=== PATIENT | female | born 1990 | race Caucasian/White ===

== ENCOUNTER → 2017-03-22 | Outpatient (CLI) | payer SELFPAY ==
--- NOTE | 2017-03-22 17:16 | RADIOLOGY REPORT (SQ) ---
EXAM DESCRIPTION: U/S OB 14+ TRNABD 1GES W/O DOP COMPLETED DATE/TIME: 03/22/2017 4:55 pm REASON FOR STUDY: ENCOUNTER FOR SUPERVISION OF OTHER NORMAL 2ND TRIMESTER (Z34.82) Z34.82 ENCOUNTER FOR SUPRVSN OF NORMAL , SECOND TRI COMPARISON: None. TECHNIQUE: Static and Dynamic grayscale imaging performed of gravid uterus using transabdominal appr oach. Additional selected color Doppler and spectral images recorded. All stored on PACS. LIMITATIONS: None. FINDINGS: EGA: 25 weeks 6 days SHARRI: 06/29/2017 EFW: 802+/- 119 grams PERCENTILE: 48 SPRING: 12.2 cm PLACENTA: Anterior grade 1 PRESENTATION: Breech ANATOMY: HEART RATE: 155 beats per minute. FOUR CHAMBER HEART: Visualized. THREE VESSEL CORD: Yes. CORD INSERTION: Visualized. KIDNEYS AND BLADDER: Visualized. Appear normal except for questionably dilated left renal pelvis at 4 .5 mm. STOMACH: Visualized. Appears normal. SPINE: Normal as visualized. BRAIN AND LATERAL VENTRICLES: Visualized. Appear normal. OTHER: No other significant finding. MATERNAL ADNEXA: Maternal ovaries not visualized. CERVICAL LENGTH: Not applicable. Greater than 20 weeks. Need transvaginal study if indicated. Close d. OTHER: No other significant finding. IMPRESSION: 1. There is a live intrauterine gestation of 25 weeks 6 days estimated date of delivery of 06/29/2017. 2. The left renal pelvis is questionably dilated. Trimester of : Second trimester - 13 weeks 1 day to 27 weeks 6 days. TECHNICAL DOCUMENTATION: JOB ID: [id number] [employer]- All Rights Reserved
== END ==
LOC: RAD 14:19
PROVIDERS: ATTEND Nurse Practitioner Women's Health
DX: Z34.82 Encounter for supervision of other normal pregnancy, second trimester (principal)
CPT/HCPCS: 76805

== ENCOUNTER 2017-06-28 05:29 | Inpatient (IN) | payer MEDICAID ==
[2017-06-27 11:35] LABS: AMORPHOUS SEDIMENT,URINE TRACE /HPF; APPEARANCE,URINE CLOUDY; BILIRUBIN,URINE NEGATIVE (NEGATIVE); COLOR,URINE YELLOW; GLUCOSE, URINE NEGATIVE (NEGATIVE); KETONES,URINE NEGATIVE (NEGATIVE); LEUKOCYTE ESTERASE,URINE MODERATE (NEGATIVE); NITRITE,URINE NEGATIVE (NEGATIVE); PROTEIN,URINE NEGATIVE (NEGATIVE); UROBILINOGEN,URINE NEGATIVE mg/dL (<2.0)
[2017-06-27 11:37] LABS: ABSOLUTE EOSINOPHILS # (AUTO) 0.1 10^3/uL (0.0-0.6); ABSOLUTE LYMPHOCYTES (AUTO) 0.8 10^3/uL (0.5-4.7); ABSOLUTE MONOCYTES (AUTO) 0.4 10^3/uL (0.1-1.4); ABSOLUTE NEUT (AUTO) 4.1 10^3/uL (1.7-8.2); BASOPHILS % (AUTO) 0.4 % (0-2); HEMATOCRIT 27.3 % (36.0-47.0); HEMOGLOBIN 9.1 g/dL (12.0-15.5); LYMPHOCYTES % (AUTO) 14.7 % (13-45); MEAN CORPUSCULAR HEMOGLOBIN 26.4 pg (27.0-33.4); MEAN CORPUSCULAR HGB CONC 33.2 g/dL (32.0-36.0); MEAN CORPUSCULAR VOLUME 79 fl (80-97); MONOCYTES % (AUTO) 7.8 % (3-13); PLATELET COUNT 159 10^3/uL (150-450); RED BLOOD COUNT 3.43 10^6/uL (3.72-5.28); RED CELL DISTRIBUTION WIDTH 13.8 % (11.5-14.0); SEGMENTED NEUTROPHILS % (AUTO) 75.1 % (42-78); TOTAL CELLS COUNTED % (AUTO) 100 %; WHITE BLOOD COUNT 5.5 10^3/uL (4.0-10.5)
[2017-06-27 12:08] LABS: URINE AMPHETAMINES SCREEN NEGATIVE; URINE BARBITURATES SCREEN NEGATIVE; URINE BENZODIAZEPINES SCREEN NEGATIVE; URINE COCAINE SCREEN NEGATIVE; URINE MARIJUANA (THC) SCREEN NEGATIVE; URINE METHADONE SCREEN NEGATIVE; URINE PHENCYCLIDINE SCREEN NEGATIVE
[~2017-06-28 05:29] MED LIST: CEFAZOLIN 2 GM/D5W RTU 2 GM/50 ML RTUPB IV PRN; LACTATED RINGERS 1000 ML IV PRN; LIDOCAINE 0.5% INJ-PF (5 MG/ML) 50 ML SDV SUBCUT PRN; RINGERS SOLUTION,LACTATED 1,000 ML IV PRN
[2017-06-28] MEDS ORDERED: OXYTOCIN/NORMAL SALINE 20 UNIT/1,000 ML RTUINJ ONE ×2 (07:33→09:23)
[2017-06-28] MEDS ORDERED: EPHEDRINE SULFATE INJ 50 MG/1 ML AMPULE ONE (07:33)
[2017-06-28] MEDS ORDERED: MIDAZOLAM 2 MG/2 ML INJ ONE (07:33)
[2017-06-28] MEDS ORDERED: FENTANYL CITRATE INJ/PF 100 MCG/2 ML AMPUL ONE (07:34)
[2017-06-28] MEDS ORDERED: PROPOFOL INJ 200 MG/20 ML VIAL IV ONE (07:34)
[2017-06-28] MEDS ORDERED: OXYCODONE-ACETAMINOPHEN 5-325 MG TABLET PO PRN ×3 (08:13→09:04)
[2017-06-28] MEDS ORDERED: MORPHINE SULFATE 10 MG/ML INJ IV PRN (08:13)
[2017-06-28] MEDS ORDERED: MEPERIDINE HCL/PF INJ 25 MG/1 ML DISP.SYRIN IV PRN (08:13)
[2017-06-28] MEDS ORDERED: DIPHENHYDRAMINE HCL 50 MG/ML VIAL IV PRN (08:13)
[2017-06-28] MEDS ORDERED: FENTANYL CITRATE INJ/PF 100 MCG/2 ML AMPUL IV PRN ×3 (08:13)
[2017-06-28] MEDS ORDERED: PROMETHAZINE HCL INJ 25 MG/1 ML VIAL IV PRN ×3 (08:13→09:04)
[2017-06-28] MEDS ORDERED: OXYTOCIN/NORMAL SALINE 20 UNIT/1,000 ML RTUINJ IV PRN (09:04)
[2017-06-28] MEDS ORDERED: ACETAMINOPHEN 325 MG TABLET PO PRN (09:04)
[2017-06-28] MEDS ORDERED: MEASLES,MUMPS&RUBELLA VACC/PF 0.5 ML VIAL SUBCUT PRN (09:04)
[2017-06-28] MEDS ORDERED: RINGERS SOLUTION,LACTATED 1,000 ML IV PRN (09:04)
[2017-06-28] MEDS ORDERED: DIPH/PERTUSS(ACELL)/TETANUS VAC/PF 0.5 ML SYR (>=10YO) IM PRN (09:04)
[2017-06-28] MEDS ORDERED: HYDROMORPHONE HCL INJ/PF 2 MG/ML AMPULE IV PRN (09:04)
[2017-06-28] MEDS ORDERED: ACETAMINOPHEN 100 ML IV PRN (09:04)
--- NOTE | 2017-06-28 09:04 | Operative Report ---
Operative Report DATE OF SURGERY: 06/28/17 PREOPERATIVE DIAGNOSIS: Repeat to prevent risk of uterine rupture POSTOPERATIVE DIAGNOSIS: Same OPERATION: Repeat via low transverse uterine incision SURGEON: MCKINLEY CRISTOBAL ANESTHESIA: Spinal TISSUE REMOVED OR ALTERED: Placenta COMPLICATIONS: None ESTIMATED BLOOD LOSS: 250 cc INTRAOPERATIVE FINDINGS: Viable male Apgars 8 and 9 weight 7 lbs. 11 oz. normal uterus tubes and ovaries PROCEDURE: Patient was taken to the OR and placed in supine position after her spinal anesthesia. She is prepared and draped in sterile fashion. Guzman was placed for drainage of the bladder. Low transverse incision was made and carried down the level of the fascia. The fascial incision was made with knife and extended bilaterally with curved Buenrostro scissors. The fascia was off the rectus muscles using sharp and blunt dissection. The rectus muscles are in the midline. The peritoneum was entered without incident. Bladder blade was placed in uterine segment was identified. A low transverse incision was made creating a bladder flap. Bladder blade was placed low transverse uterine incision was made with the c safe knife and extended with fingertips. The baby was delivered with some fundal pressure. Mouth and nose were suctioned free. The cord is doubly clamped and cut. Baby is passed off to the tube machine operator helper in attendance. The placenta was manually extracted with trailing membranes. The uterus was externalized wrapped in a moist lap sponge. Uterine contents wiped free. Uterus was closed with a running locking layer of 0 chromic suture using the second layer to imbricate the first completing a double layer closure of the uterus. The serosa was closed with a running 2-0 chromic stitch. The pelvis was irrigated and suctioned free of fluid the uterus was replaced in the abdomen. The abdominal wall peritoneum was closed with running 2-0 chromic stitch. Fascia was closed with a running 0 Vicryl in 2 segments. Katie's layer was brought together with 0 plain gut stitch and the skin was closed with running subcuticular 4-0 undyed Vicryl stitch. The wound was dressed mother and baby did well.
[2017-06-28] MEDS ORDERED: ACETAMINOPHEN 100 ML IV ONE (09:20)
[2017-06-28] MEDS: KETOROLAC TROMETHAMINE INJ/PF 30 MG/1 ML SDV IV SCH ×2 (11:55→18:14)
[2017-06-28] MEDS: PRENATAL VITAMIN W DHA CAPSULE PO SCH (11:57)
[2017-06-28] MEDS: DOCUSATE SODIUM 100 MG CAPSULE PO SCH ×2 (11:58→18:15)
[2017-06-28] MEDS ORDERED: ONDANSETRON HCL INJ/PF 4 MG/2 ML SDV ONE (12:07)
[2017-06-28] MEDS: OXYCODONE-ACETAMINOPHEN 5-325 MG TABLET PO PRN ×2 (18:14→22:15)
[2017-06-29] MEDS: KETOROLAC TROMETHAMINE INJ/PF 30 MG/1 ML SDV IV SCH (01:37)
[2017-06-29 06:36] LABS: HEMATOCRIT 22.1 % (36.0-47.0); MEAN CORPUSCULAR HEMOGLOBIN 26.5 pg (27.0-33.4); MEAN CORPUSCULAR HGB CONC 33.4 g/dL (32.0-36.0); MEAN CORPUSCULAR VOLUME 80 fl (80-97); PLATELET COUNT 150 10^3/uL (150-450); RED BLOOD COUNT 2.77 10^6/uL (3.72-5.28); RED CELL DISTRIBUTION WIDTH 13.9 % (11.5-14.0); WHITE BLOOD COUNT 7.2 10^3/uL (4.0-10.5)
[2017-06-29 06:42] LABS: HEMOGLOBIN 7.4 g/dL (12.0-15.5)
[2017-06-29] MEDS: OXYCODONE-ACETAMINOPHEN 5-325 MG TABLET PO PRN ×3 (07:17→19:47)
--- NOTE | 2017-06-29 09:35 | PDOC PROGRESS REPORT ---
Subjective-OB Subjective: Post Delivery Day: 1 26 year old. Denies any needs at this time, voiding without difficulty, state lochia is stable, pain well controlled, bonding with baby well. Physical Exam (OB) Vital Signs: Temp Pulse Resp BP Pulse Ox 97.9 F 74 15 108/65 98 06/29/17 08:09 06/29/17 08:09 06/29/17 08:09 06/29/17 08:09 06/29/17 08:09 Intake & Output 06/28/17 06/29/17 06/30/17 06:59 06:59 06:59 Intake Total 2111 Output Total 1625 Balance 486 Weight 68.039 kg - PIH/Pre-Eclampsia DTR's: 1 + Clonus: Negative Headache: Absent Epigastric Pain: No Visual Changes: No - Dressing Removed: No - op site Incision: Dressing Closure Type: Op Site - Lochia Lochia Amount: Small 10-25 ml Lochia Color: Rubra/Red - Abdomen Description: Soft Hernia Present: No Fundal Description: Firm, Midline Fundal Height: u/u - u/2 Objective-Diagnostic Laboratory: 06/29/17 06:13 06/29/17 06:13 WBC 7.2 RBC 2.77 L Hgb 7.4 L Hct 22.1 L MCV 80 MCH 26.5 L MCHC 33.4 RDW 13.9 Plt Count 150 Assessment and Plan(PN) - Assessment and Plan (1) Acute blood loss anemia Is this a current diagnosis for this admission?: Yes Plan: ferrous sulfate increase dietary iron (2) delivery delivered Is this a current diagnosis for this admission?: Yes Plan: routine post op care - Time Spent with Patient Time with patient: Less than 15 minutes Critical Time spent with patient: Less than 15 minutes Medications reviewed and adjusted accordingly: Yes - Disposition Anticipated Discharge: Home Within: within 24 hours
[2017-06-29] MEDS: PRENATAL VITAMIN W DHA CAPSULE PO SCH (10:27)
[2017-06-29] MEDS: DOCUSATE SODIUM 100 MG CAPSULE PO SCH ×2 (10:28→18:08)
[2017-06-29] MEDS: IBUPROFEN 800 MG TABLET PO SCH ×3 (12:31→23:20)
[2017-06-29] MEDS: SIMETHICONE 80 MG TAB.CHEW PO PRN ×2 (13:34→19:08)
[2017-06-29 13:39] LABS: FETAL RBC COUNT 9
[2017-06-29 14:05] LABS: KB INTERPRETATION POSITIVE (NEGATIVE)
[2017-06-30] MEDS: OXYCODONE-ACETAMINOPHEN 5-325 MG TABLET PO PRN ×2 (03:02→09:27)
[2017-06-30] MEDS: SIMETHICONE 80 MG TAB.CHEW PO PRN ×2 (03:04→09:27)
[2017-06-30] MEDS: IBUPROFEN 800 MG TABLET PO SCH ×2 (06:16→11:29)
[2017-06-30 08:49] VITALS: BP 116/71
--- NOTE | 2017-06-30 09:19 | PDOC DISCHARGE SUMMARY ---
Final Diagnosis Discharge Date: 06/30/17 - Final Diagnosis (1) Acute blood loss anemia Is this a current diagnosis for this admission?: Yes (2) delivery delivered Is this a current diagnosis for this admission?: Yes Discharge Data - Discharge Medication Prescriptions: Oxycodone HCl/Acetaminophen [Percocet 5-325 mg Tablet] 2 tab PO Q4HP PRN #20 tablet PRN Reason: Docusate Sodium [Colace 100 mg Capsule] 100 mg PO BID #60 capsule Ferrous Sulfate 325 mg PO BID #60 tablet Ibuprofen [Motrin 800 mg Tablet] 800 mg PO Q6 #60 tablet Home Medications: No115/Iron/Folic Acid [ 19 Chewable Tablet] 1 tab PO DAILY Docusate Sodium [Colace 100 mg Capsule] 100 mg PO BID #60 capsule 06/30/17 Ferrous Sulfate 325 mg PO BID #60 tablet 06/30/17 Ibuprofen [Motrin 800 mg Tablet] 800 mg PO Q6 #60 tablet 06/30/17 Oxycodone HCl/Acetaminophen [Percocet 5-325 mg Tablet] 2 tab PO Q4HP PRN #20 tablet 06/30/17 Gestational Age: 39 Reason(s) for Admission: Ceasarean Section-Repeat Procedures: NST Intrapartum Procedure(s): : Low Cervical, Transverse - Spangler Data Baby 1 Male at 1 minute: 8 at 5 minutes: 9 Weight: 3.487 kg Home with Mother: Yes Complications: No - Diagnosis Test Laboratory: Temp Pulse Resp BP Pulse Ox 98 F 68 17 116/71 100 06/30/17 08:31 06/30/17 08:31 06/30/17 08:31 06/30/17 08:31 06/30/17 08:31 06/27/17 06/27/17 06/29/17 10:10 10:15 06:13 RBC 3.43 L 2.77 L Hgb 9.1 L 7.4 L Hct 27.3 L 22.1 L Urine Opiates Screen NEGATIVE - Discharge information/Instructions Discharge Activity: Activity As Tolerated, No Lifting Over 10 Pounds, Pelvic Rest, No tub bath Discharge Diet: Regular Disposition: HOME, SELF-CARE Follow up with: [facility] in: 1, Weeks - pt w/ hx of narcotic abuse clean since 2015, plan for pain medications is for pt to give percocet to her mom for dispensing prn. pt has follow up. Discharge planning involved.
[2017-06-30] MEDS: DOCUSATE SODIUM 100 MG CAPSULE PO SCH (09:27)
[2017-06-30] MEDS: PRENATAL VITAMIN W DHA CAPSULE PO SCH (09:28)
--- NOTE | 2017-07-04 08:41 | PDOC DELIVERY SUMMARY ---
Delivery Summary - Maternal Hx : X Hx # Term Pregnancies: 2 Hx Total # of Abortions (Sponateous & Elective): 7 SHARRI: 06/29/17 Gestational Age: 39 Ruptured Membranes: AROM Time of Rupture: 08:22 Fluids: Clear - Delivery Presentation: Vertex Heart Rate Monitoring: Done Pre-Operatively Support Person Present: Yes Location: LD : Scheduled Placenta: Within Normal Limits Delivery of Placenta Date: 06/28/17 Delivery of Placenta Time: 08:25 - Medications Type of Anesthesia:: Spinal - Assess and Care Baby 1 Male Delivery of Infant Date: 06/28/17 Delivery of Infant Time: 08:24 at 1 minute: 8 at 5 minutes: 9 Preprinted Number On Band: [id number] Infant Skin to Skin: No To Nursery At: 08:34 Mode of Transport: Bassinet Infant Delivery Weight: 3,485 Delivery Length: 20.5 in - Delivery Personnel Tray Setter: AMOS MCDOWELL RN: KEELY LOAIZA RN: KESHIA AMADOR MD: MCKINLEY CRISTOBAL
== END 2017-06-30 12:22 | disposition home or self-care (01) | DRG 765 ==
LOC: 2S 05:29
PROVIDERS: ADMIT Obstetrics & Gynecology; ATTEND Obstetrics & Gynecology
PROC: 10D00Z1 Extraction of Products of Conception, Low, Open Approach (ICD-10-PCS; principal; 2017-06-28 07:30)
PROC: 3E0234Z Introduction of Serum, Toxoid and Vaccine into Muscle, Percutaneous Approach (ICD-10-PCS; 2017-06-30)
DX: O34.211 Maternal care for low transverse scar from previous cesarean delivery (principal); O36.0930 Maternal care for other rhesus isoimmunization, third trimester, not applicable or unspecified; O98.42 Viral hepatitis complicating childbirth; D62 Acute posthemorrhagic anemia; B19.20 Unspecified viral hepatitis C without hepatic coma; O26.23 Pregnancy care for patient with recurrent pregnancy loss, third trimester; N85.8 Other specified noninflammatory disorders of uterus; Z3A.39 39 weeks gestation of pregnancy; Z37.0 Single live birth; O90.81 Anemia of the puerperium
CPT/HCPCS: 1961; 36415; 59025; 80307; 81001; 85025; 85027; 85460; 85461; 86850; 86870; 86900; 86901; 86920; 86922; 94799; J0131; J1170; J1885; J2250; J2405; J2590; J2704; J2790; J3010; J3490; J7120

== ENCOUNTER 2018-06-25 17:55 | Emergency (ER) | payer MEDICAID ==
--- NOTE | 2018-06-25 19:37 | ER Document Report ---
ED Medical Screen (RME) - General Chief Complaint: Vaginal Pain Stated Complaint: VAGINAL SWELLING Time Seen by Provider: 06/25/18 19:37 Notes: Possible insect bite vulvovaginal region. With swelling therefore present to the ED. No other rash. TRAVEL OUTSIDE OF THE [place] IN LAST 30 DAYS: No - Related Data Allergies/Adverse Reactions: No Known Allergies Allergy (Verified 06/25/18 17:57) Past Medical History Renal/ Medical History: Denies: Hx Kidney Stones GI Medical History: Reports: Hx Gastroesophageal Reflux Disease. Denies: Hx Hiatal Hernia, Hx Ulcer Musculoskeltal Medical History: Denies Hx Fibromyalgia Traumatic Medical History: Denies: Hx Fractures Infectious Medical History: Denies: Hx HIV Past Surgical History: Reports: Hx Section - x2 - Immunizations History of Influenza Vaccine for 03/2017 - 08/2017 Season: Refused Physical Exam - Vital signs Vitals: Temp Pulse Resp BP Pulse Ox 98.3 F 88 16 143/96 H 100 06/25/18 18:49 06/25/18 18:49 06/25/18 18:49 06/25/18 18:49 06/25/18 18:49 Course - Vital Signs Vital signs: Temp Pulse Resp BP Pulse Ox 98.3 F 88 16 143/96 H 100 06/25/18 18:49 06/25/18 18:49 06/25/18 18:49 06/25/18 18:49 06/25/18 18:49
--- NOTE | 2018-06-25 20:04 | ER Document Report ---
ED Skin Rash/Insect Bite/Abscs - General Chief Complaint: Vaginal Pain Stated Complaint: VAGINAL SWELLING Time Seen by Provider: 06/25/18 19:37 Notes: Patient is a 27-year-old female that comes to the emergency department for chief complaint of a swollen tender area on the external vaginal area since yesterday. She states that she stabbed the area with a scalpel that she has at home, she states there was some bleeding but no purulent discharge. She states the swelling seems to have become bigger since that time. She denies fever or chills, abdominal pain, or any other symptoms. She denies history of the same. She smokes, drinks occasional alcohol, denies recreational drugs. She has had C-sections, denies any surgeries otherwise. TRAVEL OUTSIDE OF THE [place] IN LAST 30 DAYS: No - Related Data Allergies/Adverse Reactions: No Known Allergies Allergy (Verified 06/25/18 17:57) Past Medical History - Social History Smoking Status: Current Some Day Smoker Frequency of alcohol use: None Drug Abuse: None Family History: None Patient has suicidal ideation: No Patient has homicidal ideation: No Renal/ Medical History: Denies: Hx Kidney Stones, Hx Peritoneal Dialysis GI Medical History: Reports: Hx Gastroesophageal Reflux Disease. Denies: Hx Hiatal Hernia, Hx Ulcer Musculoskeletal Medical History: Denies Hx Fibromyalgia Psychiatric Medical History: Reports: Hx Attention Deficit Hyperactivity Disorder Traumatic Medical History: Denies: Hx Fractures Infectious Medical History: Denies: Hx HIV Past Surgical History: Reports: Hx Section - x2 Review of Systems - Review of Systems Constitutional: No symptoms reported EENT: No symptoms reported Cardiovascular: No symptoms reported Respiratory: No symptoms reported Gastrointestinal: No symptoms reported Genitourinary: No symptoms reported Female Genitourinary: See HPI Musculoskeletal: No symptoms reported Skin: See HPI Hematologic/Lymphatic: No symptoms reported Neurological/Psychological: No symptoms reported Physical Exam - Vital signs Vitals: Temp Pulse Resp BP Pulse Ox 98.3 F 88 16 143/96 H 100 06/25/18 18:49 06/25/18 18:49 06/25/18 18:49 06/25/18 18:49 06/25/18 18:49 Course - Vital Signs Vital signs: Temp Pulse Resp BP Pulse Ox 98.3 F 88 16 143/96 H 100 06/25/18 18:49 06/25/18 18:49 06/25/18 18:49 06/25/18 18:49 06/25/18 18:49
[2018-06-25] MEDS ORDERED: DOXYCYCLINE HYCLATE 100 MG TABLET PO ONE ×2 (20:29→20:31)
--- NOTE | 2018-06-25 20:34 | ER Document Report ---
ED Skin Rash/Insect Bite/Abscs - General Chief Complaint: Vaginal Pain Stated Complaint: VAGINAL SWELLING Time Seen by Provider: 06/25/18 19:37 Notes: Patient is a 27-year-old female that comes to the emergency department for chief complaint of a swollen tender area on the external vaginal area since yesterday. She states that she stabbed the area with a scalpel that she has at home, she states there was some bleeding but no purulent discharge. She states the swelling seems to have become bigger since that time. She denies fever or chills, abdominal pain, or any other symptoms. She denies history of the same. She smokes, drinks occasional alcohol, denies recreational drugs. She has had C-sections, denies any surgeries otherwise. TRAVEL OUTSIDE OF THE [place] IN LAST 30 DAYS: No - Related Data Allergies/Adverse Reactions: No Known Allergies Allergy (Verified 06/25/18 17:57) Past Medical History - General Information source: Patient - Social History Smoking Status: Current Some Day Smoker Frequency of alcohol use: None Drug Abuse: None Lives with: Spouse/Significant other Family History: None Patient has suicidal ideation: No Patient has homicidal ideation: No Renal/ Medical History: Denies: Hx Kidney Stones, Hx Peritoneal Dialysis GI Medical History: Reports: Hx Gastroesophageal Reflux Disease. Denies: Hx Hiatal Hernia, Hx Ulcer Musculoskeletal Medical History: Denies Hx Fibromyalgia Psychiatric Medical History: Reports: Hx Attention Deficit Hyperactivity Disorder Traumatic Medical History: Denies: Hx Fractures Infectious Medical History: Denies: Hx HIV Past Surgical History: Reports: Hx Section - x2 - Immunizations Immunizations up to date: Yes Hx Diphtheria, Pertussis, Tetanus Vaccination: Yes Review of Systems - Review of Systems Constitutional: No symptoms reported EENT: No symptoms reported Cardiovascular: No symptoms reported Respiratory: No symptoms reported Gastrointestinal: No symptoms reported Genitourinary: No symptoms reported Female Genitourinary: See HPI Musculoskeletal: No symptoms reported Skin: See HPI Hematologic/Lymphatic: No symptoms reported Neurological/Psychological: No symptoms reported Physical Exam - Vital signs Vitals: Temp Pulse Resp BP Pulse Ox 98.3 F 88 16 143/96 H 100 06/25/18 18:49 06/25/18 18:49 06/25/18 18:49 06/25/18 18:49 06/25/18 18:49 - Notes Notes: GENERAL: Alert, interacts well. No acute distress. HEAD: Normocephalic, atraumatic. EYES: Pupils equal, round, and reactive to light. Extraocular movements intact. ENT: Oral mucosa moist, tongue midline. Oropharynx unremarkable. Airway patent. Nares patent, no nasal septal hematoma, TM's intact. NECK: Full range of motion. Supple. Trachea midline. LUNGS: Clear to auscultation bilaterally, no wheezes, rales, or rhonchi. No respiratory distress. HEART: Regular rate and rhythm. No murmur ABDOMEN: Soft, non-tender. Non-distended. Bowel sounds present in all 4 quadrants. GENITOURINARY: Right labia majora swollen with erythematous tender swelling but no noted induration, no fluctuance, no obvious wound. No nearby lymphadenopathy. No open area of drainage or bleeding. EXTREMITIES: Moves all 4 extremities spontaneously. No edema, normal radial and dorsalis pedis pulses bilaterally. No cyanosis. BACK: no cervical, thoracic, lumbar midline tenderness. No saddle anesthesia, normal distal neurovascular exam. NEUROLOGICAL: Alert and oriented x3. Normal speech. [cranial nerves II through XII grossly intact]. PSYCH: Normal affect, normal mood. SKIN: Warm, dry, normal turgor. No rashes or lesions noted. Course - Re-evaluation Re-evalutation: I do not see the area with patient trying to open this yesterday. There is a swollen area of cellulitis over the right labia majora, however I do not appreciate any induration, fluctuance, or drainable abscess. Examination performed with Janeth LOVE at bedside. Ultrasound performed at bedside and I still do not see any drainable abscess. Dr. Townsend evaluated the patient at bedside, she also performed an ultrasound over the right labia majora area, despite the swelling she also does not appreciate any drainable abscess or fluid collection at this time. Appears to be isolated cellulitis. Placed on doxycycline. Discussed follow-up and strict return precautions with patient and significant other. They state understanding and agreement. - Vital Signs Vital signs: Temp Pulse Resp BP Pulse Ox 98.9 F 78 16 139/88 H 100 06/25/18 20:56 06/25/18 20:56 06/25/18 20:56 06/25/18 20:56 06/25/18 20:56 Discharge - Discharge Clinical Impression: Skin infection, Labial swelling Condition: Stable Disposition: HOME, SELF-CARE Additional Instructions: Your evaluation is consistent with cellulitis, skin infection. No drainable abscess is seen at this time. Take antibiotic as prescribed, you can apply warm compresses to the area, keep area clean with soap and water. Follow-up with primary care. Return if you worsen in any way including failure to improve in 48 hours, developing or spreading redness, fever/chills, or any other concerning or worsening symptoms. Prescriptions: Doxycycline Hyclate 100 mg PO BID #14 capsule
[2018-06-25 20:58] VITALS: BP 139/88
== END 2018-06-25 20:58 | disposition home or self-care (01) ==
LOC: ER 17:55
DX: N76.2 Acute vulvitis (principal); F17.200 Nicotine dependence, unspecified, uncomplicated
CPT/HCPCS: 99283; J3490

== ENCOUNTER 2018-10-24 22:42 | Emergency (ER) | payer MEDICAID ==
[2018-10-24 23:01] VITALS: BP 138/86
[2018-10-25 02:29] LABS: AMORPHOUS SEDIMENT,URINE TRACE /HPF; APPEARANCE,URINE CLOUDY; BILIRUBIN,URINE NEGATIVE (NEGATIVE); COLOR,URINE YELLOW; GLUCOSE, URINE NEGATIVE (NEGATIVE); KETONES,URINE NEGATIVE (NEGATIVE); LEUKOCYTE ESTERASE,URINE NEGATIVE (NEGATIVE); NITRITE,URINE NEGATIVE (NEGATIVE); PROTEIN,URINE NEGATIVE (NEGATIVE); URINE SPECIFIC GRAVITY 1.018; UROBILINOGEN,URINE NEGATIVE mg/dL (<2.0)
--- NOTE | 2018-10-25 02:54 | ER Document Report ---
ED General - General Chief Complaint: Bloody Stools Stated Complaint: BLOOD IN STOOL AND URINE Time Seen by Provider: 10/25/18 02:36 Notes: Patient is a 27-year-old female that comes to the emergency department for chief complaint of irregular vaginal bleeding, rectal bleeding, possible blood in the urine, and she denies current abdominal pain but she states she had a sharp sensation in the lower abdomen earlier. She states she missed her menstrual cycle, last menstrual cycle was the end of August, she states she thinks she might be having some spotting from implantation bleeding. She states she has had intermittent blood in her stool for months. She denies fever/chills, vaginal discharge, concerns of pelvic infection. She states she was diagnosed with a MRSA infection on her neck, she states she was placed on linezolid and is currently taking this. TRAVEL OUTSIDE OF THE [place] IN LAST 30 DAYS: No - Related Data Allergies/Adverse Reactions: No Known Allergies Allergy (Verified 06/25/18 17:57) Past Medical History - General Information source: Patient - Social History Smoking Status: Never Smoker Drug Abuse: None Lives with: Family Family History: None Renal/ Medical History: Denies: Hx Kidney Stones, Hx Peritoneal Dialysis GI Medical History: Reports: Hx Gastroesophageal Reflux Disease. Denies: Hx Hiatal Hernia, Hx Ulcer Musculoskeletal Medical History: Denies Hx Fibromyalgia Psychiatric Medical History: Reports: Hx Attention Deficit Hyperactivity Disorder Traumatic Medical History: Denies: Hx Fractures Infectious Medical History: Denies: Hx HIV Past Surgical History: Reports: Hx Section - x2 - Immunizations Immunizations up to date: Yes Hx Diphtheria, Pertussis, Tetanus Vaccination: Yes Review of Systems - Review of Systems Constitutional: No symptoms reported EENT: No symptoms reported Cardiovascular: No symptoms reported Respiratory: No symptoms reported Gastrointestinal: See HPI Genitourinary: See HPI Female Genitourinary: No symptoms reported Musculoskeletal: No symptoms reported Skin: No symptoms reported Hematologic/Lymphatic: No symptoms reported Neurological/Psychological: See HPI Physical Exam - Vital signs Vitals: Temp Pulse Resp BP Pulse Ox 98.7 F 68 18 138/86 H 100 10/24/18 22:59 10/24/18 22:59 10/24/18 22:59 10/24/18 22:59 10/24/18 22:59 - Notes Notes: GENERAL: Alert, interacts well. No acute distress. HEAD: Normocephalic, atraumatic. EYES: Pupils equal, round, and reactive to light. Extraocular movements intact. ENT: Oral mucosa moist, tongue midline. Oropharynx unremarkable. Airway patent. NECK: Full range of motion. Supple. Trachea midline. LUNGS: Clear to auscultation bilaterally, no wheezes, rales, or rhonchi. No respiratory distress. HEART: Regular rate and rhythm. No murmur ABDOMEN: Minimal lower abdominal tenderness in the abdominal/pelvic area, slightly worse on the left. No guarding. Non-distended. Bowel sounds present in all 4 quadrants. RECTAL: Small internal hemorrhoid at approximately the 7 o'clock position, otherwise unremarkable. Belkis LOVE present during exam. GENITOURINARY: Deferred EXTREMITIES: Moves all 4 extremities spontaneously. No edema, normal radial and dorsalis pedis pulses bilaterally. No cyanosis. BACK: no cervical, thoracic, lumbar midline tenderness. No saddle anesthesia, normal distal neurovascular exam. NEUROLOGICAL: Alert and oriented x3. Normal speech. PSYCH: Normal affect, normal mood. SKIN: Band-Aid removed over questioned area of the left side of the neck, no concerning erythema, tenderness, fluctuance, or induration. Warm, dry, normal turgor. No rashes or lesions noted. Course - Re-evaluation Re-evalutation: Small internal hemorrhoid on exam with no current bleeding. Unremarkable rectal exam otherwise, negative Hemoccult. Patient has minimal lower abdominal pain, minimal bleeding at this time. Posi tive test. hCG is elevated at 1300, ultrasound was performed after discussion with patient, however this did not show intrauterine at this time. I discussed how this could not rule out ectopic , patient states she does have close follow-up, she states she will have her hCG repeated and trended, she was provided with her ultrasound and hCG level. Urine unremarkable, lab work unremarkable. RhoGam is indicated and was provided. Discussed treatment, expectations, follow-up, and return precautions with patient. Stable at time of discharge. - Vital Signs Vital signs: Temp Pulse Resp BP Pulse Ox 98.7 F 68 18 138/86 H 100 10/24/18 22:59 10/24/18 22:59 10/24/18 22:59 10/24/18 22:59 10/24/18 22:59 - Laboratory Result Diagrams: 10/25/18 02:55 10/25/18 02:55 Laboratory results interpreted by me: 10/25/18 10/25/18 10/25/18 02:14 02:14 02:55 Hgb 9.8 L Hct 29.8 L MCV 76 L MCH 25.1 L RDW 16.6 H Beta HCG, Quant Urine Ascorbic Acid 20 H Urine HCG, Qual POSITIVE H 10/25/18 02:55 Hgb Hct MCV MCH RDW Beta HCG, Quant 1344.20 H Urine Ascorbic Acid Urine HCG, Qual Discharge - Discharge Clinical Impression: Rectal bleeding, Vaginal bleeding affecting early Condition: Stable Disposition: HOME, SELF-CARE Additional Instructions: Your is positive, however the is not seen in the uterus at this time. Please perform close follow-up and have your hCG quantitative repeated in the next 2 to 3 days or return here to have it repeated. Your RhoGam has been updated. There is a small internal hemorrhoid which probably explains the rectal bleeding, take the stool softener for the next several days as prescribed, eat plenty of fiber, this should resolve. Return if you worsen including severe abdominal pain, heavy bleeding, passing out, fever, or any other concerning symptoms. Prescriptions: Docusate Sodium [Colace 100 mg Capsule] 100 mg PO ASDIR PRN #30 capsule PRN Reason:
[2018-10-25 03:05] LABS: ABSOLUTE BASOPHILS # (AUTO) 0.1 10^3/uL (0.0-0.2); ABSOLUTE EOSINOPHILS # (AUTO) 0.3 10^3/uL (0.0-0.6); ABSOLUTE LYMPHOCYTES (AUTO) 1.7 10^3/uL (0.5-4.7); ABSOLUTE MONOCYTES (AUTO) 0.3 10^3/uL (0.1-1.4); ABSOLUTE NEUT (AUTO) 2.3 10^3/uL (1.7-8.2); BASOPHILS % (AUTO) 1.1 % (0-2); HEMATOCRIT 29.8 % (36.0-47.0); HEMOGLOBIN 9.8 g/dL (12.0-15.5); LYMPHOCYTES % (AUTO) 36.7 % (13-45); MEAN CORPUSCULAR HEMOGLOBIN 25.1 pg (27.0-33.4); MEAN CORPUSCULAR VOLUME 76 fl (80-97); PLATELET COUNT 245 10^3/uL (150-450); RED BLOOD COUNT 3.91 10^6/uL (3.72-5.28); RED CELL DISTRIBUTION WIDTH 16.6 % (11.5-14.0); SEGMENTED NEUTROPHILS % (AUTO) 49.2 % (42-78); TOTAL CELLS COUNTED % (AUTO) 100 %; WHITE BLOOD COUNT 4.6 10^3/uL (4.0-10.5)
[2018-10-25 03:20] LABS: ANION GAP 9 (5-19); BLOOD UREA NITROGEN 15 mg/dL (7-20); CARBON DIOXIDE 29 mmol/L (22-30); CHLORIDE 103 mmol/L (98-107); GLUCOSE 93 mg/dL (75-110); POTASSIUM 3.6 mmol/L (3.6-5.0); SODIUM 140.7 mmol/L (137-145)
--- NOTE | 2018-10-25 04:58 | RADIOLOGY REPORT (SQ) ---
EXAM DESCRIPTION: US TRANSVAGINAL COMPLETED DATE/TME: 10/25/2018 03:54 CLINICAL HISTORY: 27 years Female, +HCG, vaginal bleeding, pelvic pain COMPARISON:Mar 22 2017 TECHNIQUE: Transvaginal. LIMITATIONS: None. FINDINGS: No intrauterine gestation confirmed. Endometrial stripe thickness is 1.6 cm. Uterus measures 10.5 cm. Cervical length is 3.5 cm. Ovaries are not visualized. No free fluid. IMPRESSION: No intrauterine confirmed. Differential diagnosis includes early viable occult intrauterine gestation, gestational loss, and occult ECTOPIC gestation. Recommend 48 -72 hours laboratory/sonographic surveillance.
== END 2018-10-25 06:00 | disposition home or self-care (01) ==
LOC: ER 22:42
DX: O20.9 Hemorrhage in early pregnancy, unspecified (principal); K62.5 Hemorrhage of anus and rectum; R31.9 Hematuria, unspecified; Z87.442 Personal history of urinary calculi; Z86.14 Personal history of Methicillin resistant Staphylococcus aureus infection
CPT/HCPCS: 99284; 96372; 86900; 86901; 36415; 86850; 84702; 85025; 81025; 80048; 81001; 76817; 93976; J2790

== ENCOUNTER 2019-07-08 23:03 | Emergency (ER) | payer SELFPAY ==
--- NOTE | 2019-07-08 23:48 | ER Document Report ---
ED Medical Screen (RME) - General Chief Complaint: Urinary Problem Stated Complaint: POSSIBLE BLOOD CLOTS IN URINE Time Seen by Provider: 07/08/19 23:41 Notes: HPI: 28-year-old female presenting to the emergency department complaining of urinating blood and blood clots that began 3 to 4 days ago. Patient states she has a history of this over the last several years. Patient states she has been told previously when she had this issue that she had urinary infections. States that she also has a history of anemia. Patient complains of mild low back pain, complains of mild mid abdominal discomfort tonight. Does not have nausea vomiting or fever. Patient states she has never had imaging studies to further evaluate this, has not followed up with urology or PCP recently I have greeted and performed a rapid initial assessment of this patient. A comprehensive ED assessment and evaluation of the patient, analysis of test results and completion of the medical decision making process will be conducted by additional ED providers PHYSICAL EXAMINATION: GENERAL: cachetic-appearing, in no acute distress. HEAD: Atraumatic, normocephalic. EYES: sclera anicteric, conjunctiva are normal. ENT: Moist mucous membranes. NECK: Normal range of motion LUNGS: Normal work of breathing, clear to auscultation HEART: 2+ radial pulses bilaterally, regular rate and rhythm ABD: limited by positioning for exam in triage. Minimal discomfort on palpation of the mid abdomen BACK: No discomfort on palpation of the back, no CVA tenderness EXTREMITIES: no pitting or edema. No cyanosis. NEUROLOGICAL: No focal neurological deficits. Moves all extremities spontaneously and on command. PSYCH: Normal mood, normal affect. SKIN: Warm, Dry, normal turgor, no rashes or lesions noted. TRAVEL OUTSIDE OF THE [place] IN LAST 30 DAYS: No - Related Data Allergies/Adverse Reactions: No Known Allergies Allergy (Verified 07/08/19 23:38) Past Medical History Renal/ Medical History: Denies: Hx Kidney Stones, Hx Peritoneal Dialysis GI Medical History: Reports: Hx Gastroesophageal Reflux Disease. Denies: Hx Hiatal Hernia, Hx Ulcer Musculoskeltal Medical History: Denies Hx Fibromyalgia Psychiatric Medical History: Reports: Hx Attention Deficit Hyperactivity Disorder Traumatic Medical History: Denies: Hx Fractures Infectious Medical History: Denies: Hx HIV Past Surgical History: Reports: Hx Section - x2 - Immunizations Immunizations up to date: Yes Hx Diphtheria, Pertussis, Tetanus Vaccination: Yes Physical Exam - Vital signs Vitals: Temp Pulse Resp BP Pulse Ox 97.8 F 65 12 165/80 H 100 07/08/19 23:07 07/08/19 23:07 07/08/19 23:07 07/08/19 23:07 07/08/19 23:07 Course - Vital Signs Vital signs: Temp Pulse Resp BP Pulse Ox 97.8 F 65 12 165/80 H 100 07/08/19 23:07 07/08/19 23:07 07/08/19 23:07 07/08/19 23:07 07/08/19 23:07
[2019-07-09 00:13] LABS: ABSOLUTE LYMPHOCYTES (AUTO) 1.7 10^3/uL (0.5-4.7); HEMOGLOBIN 11.3 g/dL (12.0-15.5); TOTAL CELLS COUNTED % (AUTO) 100 %
[2019-07-09 00:14] LABS: AMORPHOUS SEDIMENT,URINE TRACE /HPF; APPEARANCE,URINE CLOUDY; BILIRUBIN,URINE NEGATIVE (NEGATIVE); COLOR,URINE YELLOW; GLUCOSE, URINE NEGATIVE (NEGATIVE); KETONES,URINE NEGATIVE (NEGATIVE); LEUKOCYTE ESTERASE,URINE TRACE (NEGATIVE); NITRITE,URINE NEGATIVE (NEGATIVE); PROTEIN,URINE 30 mg/dL (NEGATIVE); URINE SPECIFIC GRAVITY 1.009; UROBILINOGEN,URINE NEGATIVE mg/dL (<2.0)
[2019-07-09 00:15] LABS: INTERNATIONAL RATION (INR) 0.98
[2019-07-09 00:16] LABS: ABSOLUTE EOSINOPHILS # (AUTO) 0.1 10^3/uL (0.0-0.6); ABSOLUTE MONOCYTES (AUTO) 0.2 10^3/uL (0.1-1.4); ABSOLUTE NEUT (AUTO) 2.5 10^3/uL (1.7-8.2); BASOPHILS % (AUTO) 0.8 % (0-2); EOSINOPHILS % (AUTO) 3.2 % (0-6); LYMPHOCYTES % (AUTO) 36.8 % (13-45); MEAN CORPUSCULAR HEMOGLOBIN 25.2 pg (27.0-33.4); MEAN CORPUSCULAR HGB CONC 33.3 g/dL (32.0-36.0); MEAN CORPUSCULAR VOLUME 76 fl (80-97); MONOCYTES % (AUTO) 5.1 % (3-13); PLATELET COUNT 229 10^3/uL (150-450); RED CELL DISTRIBUTION WIDTH 16.7 % (11.5-14.0); SEGMENTED NEUTROPHILS % (AUTO) 54.1 % (42-78); WHITE BLOOD COUNT 4.6 10^3/uL (4.0-10.5)
[2019-07-09 00:24] LABS: ALKALINE PHOSPHATASE 56 U/L (38-126); ANION GAP 9 (5-19); ASPARTATE AMINO TRANSFERASE 27 U/L (14-36); BILIRUBIN,TOTAL 0.1 mg/dL (0.2-1.3); BLOOD UREA NITROGEN 14 mg/dL (7-20); CALCIUM 9.6 mg/dL (8.4-10.2); CARBON DIOXIDE 30 mmol/L (22-30); CHLORIDE 100 mmol/L (98-107); GLUCOSE 89 mg/dL (75-110); POTASSIUM 3.4 mmol/L (3.6-5.0)
--- NOTE | 2019-07-09 03:34 | RADIOLOGY REPORT (SQ) ---
EXAM DESCRIPTION: CT ABDOMEN PELVIS WITHOUT IV CONTRAST COMPLETED DATE/TME: 07/09/2019 02:15 CLINICAL HISTORY: Gross hematuria. HCG NEG COMPARISON: None Available. TECHNIQUE: CT of the abdomen and pelvis without IV contrast. Evaluation of the solid organs and vasculature is suboptimal due to lack of IV contrast. FINDINGS: Lung Bases: The visualized lung bases are clear. Bones: No destructive bone lesions identified. Abdomen: Liver: The liver has normal size and density. Gallbladder: No calcified gallstones. Spleen, Pancreas, and Adrenal Glands: The spleen, pancreas, and left adrenal glands are unremarkable. Kidneys: Multiple punctate bilateral nonobstructing nephrolithiasis. No hydronephrosis or obstructing ureteral calculus. Arising from the superior pole of the right kidney is an incompletely characterized 6.3 x 6.6 x 10.0 cm isodense mass. Vasculature: The aorta and IVC have normal caliber and position. Stomach: The stomach and duodenum have normal course. Other: No free intraperitoneal air. No free fluid or lymphadenopathy. Pelvis: Bladder: Urinary bladder is unremarkable. Bowel: No dilated loops of large or small bowel. Appendix: Normal appendix. Pelvis: Uterus is not enlarged. IMPRESSION: 1. There is a 10.0 cm solid-appearing mass arising in the region of the superior right kidney and suprarenal region. It is indeterminate on this study whether this is of adrenal or renal origin. Multiphasic renal protocol CT recommended for more complete characterization. 2. Punctate nonobstructing bilateral nephrolithiasis. This exam was performed according to our departmental dose-optimization program, which includes automated exposure control, adjustment of the mA and/or kV according to patient size and/or use of iterative reconstruction technique.
[2019-07-09] MEDS ORDERED: KETOROLAC TROMETHAMINE INJ/PF 30 MG/1 ML SDV IV ONE (04:39)
--- NOTE | 2019-07-09 06:20 | ER Document Report ---
ED General - General Chief Complaint: Urinary Problem Stated Complaint: POSSIBLE BLOOD CLOTS IN URINE Time Seen by Provider: 07/08/19 23:41 Primary Care Provider: GERARDO MYERS PA-C [Primary Care Provider] - Follow up as needed TRAVEL OUTSIDE OF THE [place] IN LAST 30 DAYS: No - HPI Notes: 28-year-old female with a 3-year intermittent history of gross hematuria. Patient says she is never been referred to urologist and has never had a CT scan. She has seen primary care provider on numerous occasions with these complaints and was told that she had infection and treated with wide variety of antibiotics. She denies fever chills nausea vomiting. She has some intermitte nt flank pain. - Related Data Allergies/Adverse Reactions: No Known Allergies Allergy (Verified 07/08/19 23:38) Past Medical History - General Information source: Patient - Social History Smoking Status: Current Every Day Smoker Family History: None Patient has suicidal ideation: No Patient has homicidal ideation: No Renal/ Medical History: Reports: Hx Kidney Stones, Other - Recurrent UTIs. Denies: Hx Peritoneal Dialysis GI Medical History: Reports: Hx Gastroesophageal Reflux Disease. Denies: Hx Hiatal Hernia, Hx Ulcer Musculoskeletal Medical History: Denies Hx Fibromyalgia Psychiatric Medical History: Reports: Hx Attention Deficit Hyperactivity Disorder Traumatic Medical History: Denies: Hx Fractures Infectious Medical History: Denies: Hx HIV Past Surgical History: Reports: Hx Section - x2 - Immunizations Immunizations up to date: Yes Hx Diphtheria, Pertussis, Tetanus Vaccination: Yes Review of Systems - Review of Systems Notes: Constitutional: Negative for fever. HENT: Negative for sore throat. Eyes: Negative for visual changes. Cardiovascular: Negative for chest pain. Respiratory: Negative for shortness of breath. Gastrointestinal: Negative for abdominal pain, vomiting or diarrhea. Genitourinary: As per HPI. Musculoskeletal: As per HPI. Skin: Negative for rash. Neurological: Negative for headaches, weakness or numbness. 10 point ROS negative except as marked above and in HPI. Physical Exam - Vital signs Vitals: Temp Pulse Resp BP Pulse Ox 97.8 F 65 12 165/80 H 100 07/08/19 23:07 07/08/19 23:07 07/08/19 23:07 07/08/19 23:07 07/08/19 23:07 - Notes Notes: GENERAL: Slender female approximately stated age appearing in no acute distress. SKIN: Good turgor no rashes. HEAD: Normocephalic atraumatic. EYES: PERRLA. EOMI. Conjunctivae and sclerae clear. EARS: CANALS AND TMS CLEAR. NOSE: CLEAR. MOUTH: Moist mucosa. Good dentition. No stridor or edema. No drooling. NECK: Supple. No masses or thyromegaly. No adenopathy. Carotids 2+ without bruits. No JVD. BACK: Symmetrical without tenderness. CHEST: Respirations unlabored. Breath sounds clear and symmetrical. HEART: Regular rhythm. No murmur gallop or rub. ABDOMEN: Soft nontender without masses, organomegaly or rebound. Bowel sounds normally active. No bruits. GENITALIA: Deferred. EXTREMITIES: No edema. No calf tenderness. Cap refill less than 1.5 seconds. Dorsalis pedis and posterior tibial pulses 3+ and symmetrical. NEUROLOGICAL: GCS 15. Alert and oriented x3. Normal gait. Fluent speech. Cranial nerves II through XII intact. Sensorimotor and cerebellar normal. Normal tone. PSYCHIATRIC: Appropriate affect. Course - Vital Signs Vital signs: Temp Pulse Resp BP Pulse Ox 97.6 F 55 L 16 147/90 H 100 07/09/19 04:30 07/09/19 04:30 07/09/19 04:30 07/09/19 04:30 07/09/19 04:30 - Laboratory Result Diagrams: 07/08/19 23:55 07/08/19 23:55 Laboratory results interpreted by me: 07/08/19 07/08/19 07/08/19 23:55 23:55 23:55 Hgb 11.3 L Hct 34.0 L MCV 76 L MCH 25.2 L RDW 16.7 H Potassium 3.4 L Total Bilirubin 0.1 L Urine Protein 30 H Urine Blood LARGE H Ur Leukocyte Esterase TRACE H - Diagnostic Test Radiology reviewed: Reports reviewed - Large mass upper pole right kidney per radiologist Discharge - Discharge Clinical Impression: Right renal mass Condition: Stable Disposition: HOME, SELF-CARE Additional Instructions: You have a mass on your kidney and you need to be seen urgently by a urologist as an outpatient. I am providing you the name of a clinic where you can get an appointment to be seen. Return here as needed for new or worsening symptoms: Pain that is worsening or unimproved Uncontrolled vomiting High fever or shaking chills Overall worsening Referrals: GERARDO MYERS PA-C [Primary Care Provider] - Follow up as needed [facility] [Provider Group] - Follow up as needed
--- NOTE | 2019-07-09 06:41 | RADIOLOGY REPORT (SQ) ---
CT ABDOMEN AND PELVIS WITH INTRAVENOUS CONTRAST: 07/09/2019 5:35 AM BSW HISTORY: 28-year old with concern for right renal mass. COMPARISON: CT of abdomen and pelvis from earlier on the same day TECHNIQUE: Axial contiguous images were obtained from the lung bases to the proximal femurs with intravenous intravenous contrast administered. Sagittal and coronal reconstructions were also obtained and reviewed. This exam was performed according to our departmental dose-optimization program, which includes automated exposure control, adjustment of the mA and/or KV according to the patient's size and/or use of iterative reconstruction technique. FINDINGS: No focal consolidative airspace opacities are seen. No discrete pleural effusion is seen. The visualized hepatic parenchyma is unremarkable. No focal enhancing lesion is seen. The gallbladder demonstrates no evidence of calcified gallstones The spleen, pancreas, and adrenals are normal in size and contour. The kidneys demonstrate no evidence of hydronephrosis. There is a mass noted at the superior pole of the right kidney concerning for malignancy. This demonstrates enhancement and is diffusely hypodense. This measures 6.3 x 6.3 x 11.4 cm. This measures 70 Hounsfield units on the nephrographic phase and 65 Hounsfield units on the delayed phase. On precontrast imaging, this measured 43 Hounsfield units. This appears to arise from the superior pole of the right kidney. The patient has known punctate bilateral nonobstructive calculi. There is a cyst seen at the inferior pole the right kidney measuring up to 1.7 cm. Bladder is minimally distended, but grossly appears unremarkable. The uterus is present. There are multiple prominent vessels at the lower pelvis. The stomach is not well distended. The small bowel loops appear unremarkable. No pericolonic inflammatory stranding is seen. There is no evidence of pneumoperitoneum or free fluid. The aorta and IVC appear normal in size. No significantly enlarged lymph nodes are seen in the abdomen or pelvis. Review of the bone show no evidence of any suspicious lytic or blastic lesions. IMPRESSION: There is a solid mass at the superior pole the right kidney measuring up to 11.4 cm. This is worrisome for malignancy. No obvious abnormal adenopathy is seen. There is no evidence of hydronephrosis.
[2019-07-09 06:55] VITALS: BP 151/89
== END 2019-07-09 06:54 | disposition home or self-care (01) ==
LOC: ER 23:03
DX: N28.89 Other specified disorders of kidney and ureter (principal); R31.0 Gross hematuria; R10.9 Unspecified abdominal pain; F17.200 Nicotine dependence, unspecified, uncomplicated; Z87.440 Personal history of urinary (tract) infections; Z87.442 Personal history of urinary calculi
CPT/HCPCS: 99284; 96374; 36415; 85025; 85610; 81025; 80053; 81001; 74176; 74177; J1885

== ENCOUNTER 2019-07-12 00:48 | Emergency (ER) | payer SELFPAY ==
[2019-07-12 01:29] LABS: ABSOLUTE MONOCYTES (AUTO) 0.2 10^3/uL (0.1-1.4); BASOPHILS % (AUTO) 0.8 % (0-2); HEMOGLOBIN 10.5 g/dL (12.0-15.5); MEAN CORPUSCULAR HEMOGLOBIN 24.9 pg (27.0-33.4); MEAN CORPUSCULAR HGB CONC 33.1 g/dL (32.0-36.0); SEGMENTED NEUTROPHILS % (AUTO) 52.5 % (42-78); TOTAL CELLS COUNTED % (AUTO) 100 %
[2019-07-12 01:31] LABS: APPEARANCE,URINE SLIGHTLY-CLOUDY; BILIRUBIN,URINE NEGATIVE (NEGATIVE); COLOR,URINE RED; GLUCOSE, URINE NEGATIVE (NEGATIVE); KETONES,URINE NEGATIVE (NEGATIVE); LEUKOCYTE ESTERASE,URINE TRACE (NEGATIVE); NITRITE,URINE NEGATIVE (NEGATIVE); PROTEIN,URINE 100 mg/dL (NEGATIVE); URINE SPECIFIC GRAVITY 1.005; UROBILINOGEN,URINE NEGATIVE mg/dL (<2.0)
[2019-07-12 01:33] LABS: ABSOLUTE EOSINOPHILS # (AUTO) 0.1 10^3/uL (0.0-0.6); ABSOLUTE LYMPHOCYTES (AUTO) 1.4 10^3/uL (0.5-4.7); EOSINOPHILS % (AUTO) 3.8 % (0-6); HEMATOCRIT 31.7 % (36.0-47.0); LYMPHOCYTES % (AUTO) 37.4 % (13-45); MEAN CORPUSCULAR VOLUME 75 fl (80-97); MONOCYTES % (AUTO) 5.5 % (3-13); PLATELET COUNT 214 10^3/uL (150-450); RED BLOOD COUNT 4.23 10^6/uL (3.72-5.28); WHITE BLOOD COUNT 3.8 10^3/uL (4.0-10.5)
[2019-07-12 02:14] LABS: ALBUMIN 4.6 g/dL (3.5-5.0); ALKALINE PHOSPHATASE 58 U/L (38-126); ANION GAP 10 (5-19); ASPARTATE AMINO TRANSFERASE 26 U/L (14-36); BILIRUBIN,TOTAL 0.3 mg/dL (0.2-1.3); BLOOD UREA NITROGEN 15 mg/dL (7-20); CALCIUM 9.3 mg/dL (8.4-10.2); CARBON DIOXIDE 29 mmol/L (22-30); CHLORIDE 100 mmol/L (98-107); GLUCOSE 87 mg/dL (75-110); POTASSIUM 3.6 mmol/L (3.6-5.0); TOTAL PROTEIN 7.3 g/dL (6.3-8.2)
[2019-07-12 05:01] VITALS: BP 138/93
--- NOTE | 2019-07-12 07:25 | ER Document Report ---
ED GI/ - General Chief Complaint: Lower Abdominal Pain Stated Complaint: BLOOD IN URINE Time Seen by Provider: 07/12/19 06:35 Primary Care Provider: GERARDO MYERS PA-C [Primary Care Provider] - Follow up as needed Notes: 28-year-old woman presents to the emergency department with a history of a right kidney mass. She is having hematuria and clots in her urine. Urinalysis was done in the intake phase which reveals WBCs and blood with 1+ bacteria. During our discussion of her the kidney mass patient notes that she has an appointment with urology on 07/16/2019. She complains of blood in her urine and passing a small clot earlier in the evening. She denies abdominal pain or pubic pain. She also denies fever or chills. TRAVEL OUTSIDE OF THE [place] IN LAST 30 DAYS: No - Related Data Allergies/Adverse Reactions: No Known Allergies Allergy (Verified 07/08/19 23:38) Past Medical History - Social History Smoking Status: Current Every Day Smoker Chew tobacco use (# tins/day): No Frequency of alcohol use: Occasional Drug Abuse: Marijuana Family History: None Patient has suicidal ideation: No Patient has homicidal ideation: No Renal/ Medical History: Reports: Hx Kidney Stones. Denies: Hx Peritoneal Dialysis GI Medical History: Reports: Hx Gastroesophageal Reflux Disease. Denies: Hx Hiatal Hernia, Hx Ulcer Musculoskeletal Medical History: Denies Hx Fibromyalgia Psychiatric Medical History: Reports: Hx Attention Deficit Hyperactivity Disorder Traumatic Medical History: Denies: Hx Fractures Infectious Medical History: Denies: Hx HIV Past Surgical History: Reports: Hx Section - x2 - Immunizations Immunizations up to date: Yes Hx Diphtheria, Pertussis, Tetanus Vaccination: Yes Review of Systems - Review of Systems Notes: Constitutional: Negative for fever. HENT: Negative for sore throat. Eyes: Negative for visual changes. Cardiovascular: Negative for chest pain. Respiratory: Negative for shortness of breath. Gastrointestinal: Negative abdominal pain Genitourinary: + Hematuria, + urgency Musculoskeletal: Negative for back pain. Skin: Negative for rash. Neurological: Negative for headaches, weakness or numbness. 10 point ROS negative except as marked above and in HPI. Physical Exam - Vital signs Vitals: Temp Pulse Resp BP Pulse Ox 97.9 F 75 20 149/92 H 100 07/12/19 00:52 07/12/19 00:52 07/12/19 00:52 07/12/19 00:52 07/12/19 00:52 - Notes Notes: PHYSICAL EXAMINATION: Physical Exam: General: Well-nourished well-developed 28-year-old woman in no acute distress HEENT: NC/AT, pupils equal round and reactive to light, MM moist,nares clear, Neck: supple, no adenopathy, no masses. Lungs: clear, no wheezing, no rales no rhonchi CVS: Regular rate and rhythm no murmur gallop or rub Abdomen: Soft active nontender, no masses, no hepatosplenomegaly Ext: No edema clubbing or cyanosis. Neuro: Alert and responsive, moving all 4 extremities on command, cranial nerves intact. Skin: Intact no open lesions, no rash PSYCH: Normal mood, normal affect. Course - Re-evaluation Re-evalutation: 07/12/19 07:26 I reviewed the patient's history, prior CT scans, urinalysis today is significant for WBCs and bacteria. I have discussed treatment for UTI with the patient and she states that she is ready to go, has an appointment with urology on Saturday and is not interested in taking medication for UTI. I have explained that the urine is significant and we will culture the urine. Apparently the patient walked out of the emergency department before receiving discharge wen castro. - Vital Signs Vital signs: Temp Pulse Resp BP Pulse Ox 97.8 F 64 20 138/93 H 100 07/12/19 05:00 07/12/19 05:00 07/12/19 05:00 07/12/19 05:00 07/12/19 05:00 - Laboratory Result Diagrams: 07/12/19 01:08 07/12/19 01:08 Laboratory results interpreted by me: 07/12/19 07/12/19 01:08 01:08 WBC 3.8 L Hgb 10.5 L Hct 31.7 L MCV 75 L MCH 24.9 L RDW 17.0 H Urine Protein 100 H Urine Blood LARGE H Ur Leukocyte Esterase TRACE H Discharge - Discharge Clinical Impression: Right renal mass, UTI (urinary tract infection) Hematuria Qualifiers: Hematuria type: gross Qualified Code(s): R31.0 - Gross hematuria Condition: Good Disposition: HOME, SELF-CARE Instructions: Urinary Tract Infection ([facility]) Additional Instructions: Please take the antibiotic as prescribed, follow-up with urologist per your appointment. Your urine shows findings consistent with a urinary tract infection. Please take all the antibiotics as directed even if your symptoms have improved. Please follow-up with your primary care physician as needed. Return to emergency room if you develop fever >101F, persistent vomiting, become lethargic, have severe pain in your sides, or any other symptoms that are concerning to you. Referrals: GERARDO MYERS PA-C [Primary Care Provider] - Follow up as needed
== END 2019-07-12 07:23 | disposition left against medical advice (07) ==
LOC: ER 00:48
DX: N39.0 Urinary tract infection, site not specified (principal); R31.0 Gross hematuria; N28.89 Other specified disorders of kidney and ureter; F17.200 Nicotine dependence, unspecified, uncomplicated; F12.10 Cannabis abuse, uncomplicated; Z87.442 Personal history of urinary calculi
CPT/HCPCS: 36415; 80053; 81001; 81025; 83690; 85025; 99283

== ENCOUNTER → 2019-12-15 | Outpatient (CLI) | payer MEDICAID ==
--- NOTE | 2019-12-15 12:57 | RADIOLOGY REPORT (SQ) ---
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 Images reviewed with lung, soft tiss ue, and bone windows. Reconstructed coronal and sagittal MPR images reviewed. Delayed images for eval uation of the urinary system also acquired and evaluated. All images stored on PACS. All CT scanners at this facility use dose modulation, iterative reconstruc tion, and/or weight based dosing when appropriate to reduce radiation dose to as low as reasonably ac hievable (ALARA). [facility]: Dose Right [facility]: CareDose [facility]: Dose Right [facility]: Teradose 4D [facility]: [employer] CONTRAST TYPE AND DOSE: contrast/concentration: Isovue 300.00 mmol/ml; Total Contrast Delivered: 57. 0 ml; Total Saline Delivered: 58.0 ml RENAL FUNCTION: None required. The patient is less than 50 years old. RADIATION DOSE: CT Rad equipment meets quality standard of care and radiation dose reduction techniq ues were employed. CTDIvol: 2.3 - 2.3 mGy. DLP: 150 mGy-cm. . LIMITATIONS: None. FINDINGS: LOWER CHEST: Very small stable 1-2 mm nodule in the right middle lobe, axial image 2, ser ies 4. LIVER: Normal size. No masses. No dilated ducts. The hepatic and portal veins are patent. SPLEEN: Normal size. No focal lesions. PANCREAS: No masses. No significant calcifications. No adjacent inflammation or peripancreatic fluid collections. Pancreatic duct not dilated. GALLBLADDER: No identified stones by CT criteria. No inflammatory changes to suggest cholecystitis. ADRENAL GLANDS: No significant masses or asymmetry. RIGHT KIDNEY AND URETER: Status post right nephrectomy for neoplasm. LEFT KIDNEY AND URETER: Stable nonobstructing left renal calculi. AORTA AND VESSELS: No aneurysm. No dissection. Renal arteries, SMA, celiac without stenosis. RETROPERITONEUM: No retroperitoneal adenopathy, hemorrhage or masses. BOWEL AND PERITONEAL CAVITY: No masses or inflammatory changes. No free fluid or peritoneal masses. APPENDIX: Not visualized. ABDOMINAL WALL: No masses. No hernias. BONES: No significant or acute findings. OTHER: No other significant finding. IMPRESSION: 1. Since the previous examination dated 07/09/2019, status post right nephrectomy for ne oplasm. 2. Stable nonobstructing left renal calculi. 3. Additional stable findings as above. TECHNICAL DOCUMENTATION: JOB ID: [id number] Quality ID # [id number]: Final reports with documentation of one or more dose reduction techniques (e.g., Au tomated exposure control, adjustment of the mA and/or kV according to patient size, use of iterative reconstruction technique) 2010 [employer]- All Rights Reserved Reading location - IP/workstation name: [email or web address]
--- NOTE | 2019-12-15 13:03 | RADIOLOGY REPORT (SQ) ---
EXAM DESCRIPTION: CT CHEST WITHOUT IMAGES COMPLETED DATE/TIME: 12/15/2019 10:59 am REASON FOR STUDY: C64.1 MALIGNANT NEOPLASM OF RIGHT KIDNEY, EXCEPT RENAL PELVIS C64.1 MALIGNANT BETHANY PLASM OF RIGHT KIDNEY, EXCEPT RENAL PELVI COMPARISON: None. TECHNIQUE: CT scan performed of the chest without intravenous contrast. Images reviewed with lung, soft tissue and bone windows. Reconstructed coronal and sagittal MPR images reviewed. All images st ored on PACS. All CT scanners at this facility use dose modulation, iterative reconstruction, and/or weight based d osing when appropriate to reduce radiation dose to as low as reasonably achievable (ALARA). [facility]: Dose Right [facility]: CareDose [facility]: Dose Right [facility]: Teradose 4D [facility]: [employer] RADIATION DOSE: CT Rad equipment meets quality standard of care and radiation dose reduction techniq ues were employed. CTDIvol: 3.0 mGy. DLP: 137 mGy-cm. mGy. LIMITATIONS: No technical limitations. FINDINGS: LUNGS AND PLEURA: No masses, infiltrates, or pneumothorax. No pleural effusions or pleura l calcifications. HILAR AND MEDIASTINAL STRUCTURES: No identified masses or abnormal nodes. No obvious aneurysm. HEART AND VASCULAR STRUCTURES: No aneurysm. No pericardial effusion. UPPER ABDOMEN: No significant findings. Limited exam. THYROID AND OTHER SOFT TISSUES: No masses. No adenopathy. BONES: No significant finding. HARDWARE: None in the chest. OTHER: No other significant findings. IMPRESSION: NO SIGNIFICANT FINDING ON NON-CONTRASTED CHEST CT. TECHNICAL DOCUMENTATION: JOB ID: [id number] Quality ID # [id number]: Final reports with documentation of one or more dose reduction techniques (e.g., Au tomated exposure control, adjustment of the mA and/or kV according to patient size, use of iterative reconstruction technique) 2010 [employer]- All Rights Reserved Reading location - IP/workstation name: [email or web address]
== END ==
LOC: RAD 10:26
PROVIDERS: ATTEND Urology
DX: C64.1 Malignant neoplasm of right kidney, except renal pelvis (principal); N20.0 Calculus of kidney
CPT/HCPCS: 71250; 74160; 82565

== ENCOUNTER 2020-06-12 08:13 | Emergency (ER) | payer MEDICAID ==
[2020-06-12 08:25] VITALS: BP 145/86
--- NOTE | 2020-06-12 09:40 | RADIOLOGY REPORT (SQ) ---
EXAM DESCRIPTION: TOE RIGHT IMAGES COMPLETED DATE/TIME: 06/12/2020 9:11 am REASON FOR STUDY: 3RD TOE PAIN COMPARISON: None. NUMBER OF VIEWS: Three views. TECHNIQUE: AP, lateral, and oblique images acquired of the right third toe. LIMITATIONS: None. FINDINGS: MINERALIZATION: Normal. BONES: Comminuted fracture of the 3rd digit distal phalanx with probable intra-articular extension. JOINTS: No effusions. SOFT TISSUES: No soft tissue swelling. No foreign body. OTHER: No other significant finding. IMPRESSION: Comminuted fracture of the 3rd digit distal phalanx with probable intra-articular extens ion. COMMENT: SITE OF TRAUMA/COMPLAINT MARKED/STAMP COMPLETED: YES. TECHNICAL DOCUMENTATION: JOB ID: [id number] 2010 [employer]- All Rights Reserved Reading location - IP/workstation name: [email or web address]
[2020-06-12] MEDS ORDERED: ACETAMINOPHEN 325 MG TABLET PO ONE (11:36)
--- NOTE | 2020-06-12 11:50 | ER Document Report ---
Entered by AMA PEREIRA SCRIBE 06/12/20 1052 Acting as scribe for:CARROLL VALDEZ MD ED Extremity Problem, Lower - General Chief Complaint: Toe Injury Stated Complaint: RIGHT THIRD DIGIT TOE INJURY Primary Care Provider: GERARDO MYERS PA-C [NO LOCAL MD] - Follow up as needed Mode of Arrival: Wheelchair Information source: Patient Notes: This 29 year old female patient presents to the ED today for evaluation of right 3rd digit pain after dropping a marble top table on it last night. Denies any skin breaks or bleeding. She states that she last took Tylenol around 0600 this morning. Patient mentions that she cannot take Ibuprofen as she has a history of kidney cancer and right nephrectomy. TRAVEL OUTSIDE OF THE [place] IN LAST 30 DAYS: No - Related Data Allergies/Adverse Reactions: No Known Allergies Allergy (Verified 06/12/20 08:38) Home Medications: recently stopped control Past Medical History - General Information source: Patient - Social History Smoking Status: Former Smoker Chew tobacco use (# tins/day): No Smoking Education Provided: No Frequency of alcohol use: Occasional Family History: Reviewed & Not Pertinent Patient has suicidal ideation: No Patient has homicidal ideation: No Renal/ Medical History: Reports: Hx Kidney Stones Malignancy Medical History: Reports: Hx Renal (Kidney) Cancer GI Medical History: Reports: Hx Gastroesophageal Reflux Disease Psychiatric Medical History: Reports: Hx Attention Deficit Hyperactivity Disorder Past Surgical History: Reports: Hx Section - x3, Hx Kidney (Renal Surgery) - right nephrectomy August 3 - Immunizations Immunizations up to date: Yes Hx Diphtheria, Pertussis, Tetanus Vaccination: Yes Review of Systems - Review of Systems Constitutional: No symptoms reported EENT: No symptoms reported Cardiovascular: No symptoms reported Respiratory: No symptoms reported Gastrointestinal: No symptoms reported Genitourinary: No symptoms reported Female Genitourinary: No symptoms reported Musculoskeletal: See HPI Skin: See HPI Hematologic/Lymphatic: No symptoms reported Neurological/Psychological: No symptoms reported -: Yes All other systems reviewed and negative Physical Exam - Vital signs Vitals: Temp Pulse Resp BP Pulse Ox 97.8 F 64 20 145/86 H 99 06/12/20 08:20 06/12/20 08:20 06/12/20 08:20 06/12/20 08:20 06/12/20 08:20 - General General appearance: Alert In distress: None - HEENT Head: Normocephalic, Atraumatic Eyes: Normal Pupils: PERRL - Respiratory Respiratory status: No respiratory distress Chest status: Nontender Breath sounds: Normal Chest palpation: Normal - Cardiovascular Rhythm: Regular Heart sounds: Normal auscultation, S1 appreciated, S2 appreciated Murmur: No Friction rub: No Gallop: None auscultated - Abdominal Inspection: Normal Distension: No distension Bowel sounds: Normal Tenderness: Nontender - Abdomen soft Organomegaly: No organomegaly - Back Back: Normal, Nontender - Extremities General upper extremity: Normal inspection Foot: Other - Right 3rd toe is swollen, ecchymotic, and tender to palpation. Distal pulse, motor, and sensation intact - Neurological Neuro grossly intact: Yes Orientation: AAOx4 Reese Coma Scale Eye Opening: Spontaneous Reese Coma Scale Verbal: Oriented Reese Coma Scale Motor: Obeys Commands Ralph Coma Scale Total: 15 - Psychological Associated symptoms: Normal affect, Normal mood - Skin Skin Temperature: Warm Skin Moisture: Dry Skin Color: Normal Course - Re-evaluation Re-evalutation: 06/12/20 11:41 Patient resting comfortably waiting for betra taping and cast shoe and after that discharge. - Vital Signs Vital signs: Temp Pulse Resp BP Pulse Ox 97.8 F 64 20 145/86 H 99 06/12/20 08:20 06/12/20 08:20 06/12/20 08:20 06/12/20 08:20 06/12/20 08:20 06/12/20 11:41 Vital signs stable - Laboratory Results Critical Laboratory Results Reviewed: No Critical Results - Radiology Results Radiology Results Interpreted: 06/12/20 11:18 Toe X-Ray 06/12/20 00:00 IMPRESSION: Comminuted fracture of the 3rd digit distal phalanx with probable intra-articular extension. 06/12/20 11:41 Toe x-ray comminuted fracture of the right third digit distal phalanx with probable intra-articular extension. Critical Radiology Results Reviewed: No Critical Results Discharge - Discharge Clinical Impression: Fracture of third toe, right, closed Condition: Stable Disposition: HOME, SELF-CARE Additional Instructions: Fractured Toe You have fractured your toe. Although this fracture doesn't need a cast or splint, emergency evaluation was needed to assess the straightness of the bones and joints. Reduction ("setting") is necessary for toe fractures which are croo ked or twisted. A toe fracture will heal in about three weeks. Usually, the fractured toe is taped to the next toe. The second toe acts as a moving splint to protect the broken one. Ice and elevation help during the first 48 hours. You may need crutches at first if walking is painful. When you begin walking, be careful NOT to do things that hurt. If weight bearing is not comfortable within a few days, you may require a special shoe, walking boot, or cast. Call the doctor or return at once if severe swelling, severe pain, or numbness develop in the toe, or if you suspect you may have re-injured it. Referrals: GERARDO MYERS PA-C [NO LOCAL MD] - Follow up as needed SHELDON MUSA JR, DO [ACTIVE PROVISIONAL STAFF] - Follow up in 1 week I personally performed the services described in the documentation, reviewed and edited the documentation which was dictated to the scribe in my presence, and it accurately records my words and actions.
== END 2020-06-12 12:36 | disposition home or self-care (01) ==
LOC: ER 08:13
DX: S92.531A Displaced fracture of distal phalanx of right lesser toe(s), initial encounter for closed fracture (principal); W22.03XA Walked into furniture, initial encounter; Z79.899 Other long term (current) drug therapy; Z87.891 Personal history of nicotine dependence
CPT/HCPCS: 99283; 73660; J3490